=== PATIENT | female | born 1930 | race Caucasian/White ===

== ENCOUNTER 2017-02-02 15:18 | Emergency (ER) | payer MEDICARE, OTHER ==
[~2017-02-02] VITALS: Ht 160 cm; Wt 67.6 kg
--- NOTE | 2017-02-02 15:44 | RAD ---
EXAM: CT head without contrast. HISTORY: Right-sided weakness and altered mental status. TECHNIQUE: Computed tomography of the head was performed without intravenous contrast. COMPARISON: None. FINDINGS: There is no intracranial hemorrhage. There are multiple large regions of encephalomalacia consistent with chronic infarctions. These involve the right frontal lobe, right parietal lobe, left occipital lobe and left frontal lobe. Superimposed acute or subacute infarctions in these regions cannot be excluded. Background chronic small vessel ischemic white matter change is severe. Prominence of the lateral ventricles and hemispheric sulci indicate moderate atrophy. The visualized paranasal sinuses appear clear. There are changes of bilateral cataract surgery. The temporal bones are unremarkable. The calvarium reveals no suspicious lesions. IMPRESSION: 1. 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 Superimposed acute or subacute infarcts in these regions cannot be excluded. MRI could further differentiate if there is persistent concern. 2. Moderate atrophy. *One or more of the following individualized dose reduction techniques were utilized for this examination: 1. Automated exposure control. 2. Adjustment of the mA and/or kV according to patient size. 3. Use of iterative reconstruction technique.
--- NOTE | 2017-02-02 15:46 | EKG ---
[facility] [address] [place] [address] Test Date: 2017-02-02 Test Time: 15:42:13 Pat Name: VALERY RODRIGUEZ Department: Room: Gender: F [employer] Phone Rep[employer]r: : [id number] Requested By: MICHELL MEDEIROS Order Number: [id number] Reading MD: Measurements Intervals [place] Rate: 78 P: -56 AL: 162 QRS: 9 QRSD: 136 T: 11 QT: 358 QTc: 411 Interpretive Statements SINUS RHYTHM ATRIAL PREMATURE COMPLEX(ES) RIGHT BUNDLE BRANCH BLOCK RVH WITH REPOLARIZATION ABNORMALITY RI6.01 Unconfirmed report No previous ECG available for comparison
[2017-02-02 16:37] LABS: BASO % 1 % (0-3); EOS % 2 % (0-3); HEMATOCRIT 41.8 % (36.0-47.0); HEMOGLOBIN 13.4 g/dL (12.0-15.5); LYMPH # 1.9 x10^3/uL (1.0-4.8); LYMPH % 25 % (24-48); MEAN CORPUSCULAR HEMOGLOBIN 27 pg (25-35); MEAN CORPUSCULAR HGB CONC 32 g/dL (31-37); MEAN CORPUSCULAR VOLUME 86 fL (79-100); MONO % 10 % (0-9); NEUT % 63 % (31-73); PLATELET COUNT 278 x10^3/uL (140-400); RED BLOOD COUNT 4.88 x10^6/uL (3.50-5.40); RED CELL DISTRIBUTION WIDTH 14.6 % (11.5-14.5); WHITE BLOOD COUNT 7.5 x10^3/uL (4.0-11.0)
[2017-02-02] MEDS ORDERED: ONDANSETRON PF 4 MG/2 ML VIAL. ONE (16:47)
[2017-02-02 16:48] VITALS: BP 118/55
[2017-02-02 16:51] LABS: CALCIUM 9.7 mg/dL (8.5-10.1); GFR 52.4; POTASSIUM 4.3 mmol/L (3.5-5.1)
--- NOTE | 2017-02-02 17:33 | PHYS DOC ---
Past Medical History Past Medical History: Cancer, Constipation, Dementia, Hypertension, Hypothyroid Additional Past Medical Histor: SEASONAL ALLERGIES, INSOMNIA, CVA, LUNG CA Past Surgical History: Hysterectomy, Knee Replacement Additional Past Surgical Histo: R KNEE REPLACEMENT, BACK, L LOWER LUNG REMOVED Alcohol Use: None Drug Use: None Adult General Chief Complaint Chief Complaint: NEURO SYMPTOMS/DEFICITS HPI HPI This is an 86-year-old female presents from assisted living facility with concern for acute stroke after having significant right-sided weakness that was noted approximately around 11 AM per family at bedside. They state she has history of significant dementia and prior strokes but normally does not have right-sided weakness. They state her mental status has worsened today and that she is not verbalizing with normal as well. Upon my initial examination the patient is alert but not oriented and is not able to answer any questions at this time. She appears confused and is not using her right upper or right lower extremity. She has a confirmed DNR directive. Review of Systems Review of Systems A 10 point ROS is unable to be obtained secondary to her underlying mental status. Current Medications Current Medications Current Medications Medications (Trade) Dose Ordered Sig/Nicolasa Start Time Stop Time Status Last Admin Dose Admin Ondansetron HCl (Zofran) 4 mg STK-MED ONCE 02/02/17 16:47 02/02/17 16:48 DC Allergies Allergies Allergies Coded Allergies Type Severity Reaction Last Updated Verified No Known Drug Allergies 02/02/17 No Physical Exam Physical Exam Constitutional: Well developed, well nourished, no acute distress[] HENT: Normocephalic, atraumatic, bilateral external ears normal, oropharynx moist, no oral exudates, nose normal. [] Eyes: PERRLA, conjunctiva normal, no discharge. [] Neck: Normal range of motion, no tenderness, supple, no stridor. [] Cardiovascular:Heart rate regular rhythm, no murmur [] Lungs & Thorax: Bilateral breath sounds clear to auscultation [] Abdomen: Bowel sounds normal, soft, no tenderness, no masses, no pulsatile masses. [] Skin: Warm, dry, no erythema, no rash. [] Back: No tenderness, no CVA tenderness. [] Extremities: No tenderness, no cyanosis, no clubbing, ROM intact, no edema. [] Neurologic: Significant right upper and lower extremity weakness with drift noted. [] Current Patient Data Vital Signs Vital Signs Date Time Temp Pulse Resp B/P Pulse Ox O2 Delivery O2 Flow Rate FiO2 02/02/17 16:48 86 118/55 95 Room Air 02/02/17 15:30 98.2 18 98.2 Lab Values Laboratory Tests Test 02/02/17 16:05 White Blood Count 7.5x10^3/uL (4.0-11.0) Red Blood Count 4.88x10^6/uL (3.50-5.40) Hemoglobin 13.4g/dL (12.0-15.5) Hematocrit 41.8% (36.0-47.0) Mean Corpuscular Volume 86fL (79-100) Mean Corpuscular Hemoglobin 27pg (25-35) Mean Corpuscular Hemoglobin Concent 32g/dL (31-37) Red Cell Distribution Width 14.6% (11.5-14.5) H Platelet Count 278x10^3/uL (140-400) Neutrophils (%) (Auto) 63% (31-73) Lymphocytes (%) (Auto) 25% (24-48) Monocytes (%) (Auto) 10% (0-9) H Eosinophils (%) (Auto) 2% (0-3) Basophils (%) (Auto) 1% (0-3) Neutrophils # (Auto) 4.7x10^3uL (1.8-7.7) Lymphocytes # (Auto) 1.9x10^3/uL (1.0-4.8) Monocytes # (Auto) 0.7x10^3/uL (0.0-1.1) Eosinophils # (Auto) 0.1x10^3/uL (0.0-0.7) Basophils # (Auto) 0.0x10^3/uL (0.0-0.2) Sodium Level 143mmol/L (136-145) Potassium Level 4.3mmol/L (3.5-5.1) Chloride Level 103mmol/L (98-107) Carbon Dioxide Level 29mmol/L (21-32) Anion Gap 11 (6-14) Blood Urea Nitrogen 21mg/dL (7-20) H Creatinine 1.0mg/dL (0.6-1.0) Estimated GFR (Cockcroft-Gault) 52.4 Glucose Level 107mg/dL (70-99) H Calcium Level 9.7mg/dL (8.5-10.1) Troponin I Quantitative < 0.017ng/mL (0.000-0.055) Laboratory Tests 02/02/17 16:05 Laboratory Tests 02/02/17 16:05 EKG EKG [] Radiology/Procedures Radiology/Procedures EXAM: CT head without contrast. HISTORY: Right-sided weakness and altered mental status. TECHNIQUE: Computed tomography of the head was performed without intravenous contrast. COMPARISON: None. FINDINGS: There is no intracranial hemorrhage. There are multiple large regions of encephalomalacia consistent with chronic infarctions. These involve the right frontal lobe, right parietal lobe, left occipital lobe and left frontal lobe. Superimposed acute or subacute infarctions in these regions cannot be excluded. Background chronic small vessel ischemic white matter change is severe. Prominence of the lateral ventricles and hemispheric sulci indicate moderate atrophy. The visualized paranasal sinuses appear clear. There are changes of bilateral cataract surgery. The temporal bones are unremarkable. The calvarium reveals no suspicious lesions. Course & Med Decision Making Course & Med Decision Making Pertinent Labs and Imaging studies reviewed. (See chart for details) This 86 yo female with significant right sided weakness and altered mental status is likely 4-5 hours into an acute stroke. She was made a stroke alert immediately upon arrival. Her initial Head CT is unremarkable and shows no acute symptoms but does show rather large areas of previous infarct which with in combination of her age and delayed presentation makes her high risk for TPA administration. I discussed the case with the neurologist, Dr. Peter, who agrees with withholding TPA at this time and to facilitate [facility] transfer if the family wishes for this. I discussed the risks/benefits with the family and they agree that TPA is high risk for bleed in this scenario and they are requesting the patient be transferred to [facility] where she has received all her care previously. The transfer center was notified and I spoke with the accepting neurology physician at [facility] who agreed to accept the patient to a medical neurology floor for further evaluation. While transfer was being set up, the patient began to have a seizure episode and a dose of ativan was given. I confirmed at bedside that the patient is a DNR status and she has a directive symbolizing this at bedside. I once again asked the daughter at beside who is the POA about the patient's wishes and she expressed that she does not wish to be intubated at this time. Due to the chance for endovascular intervention, the patient was tranferred emergently to [facility] and a bed was able to made available. Her laboratory workup was otherwise negative. Dragon Disclaimer Dragon Disclaimer This electronic medical record was generated, in whole or in part, using a voice recognition dictation system. Departure Departure Impression: Primary Impression: Right sided weakness Additional Impression: Altered mental status Disposition: 02 TRANSFER [facility] Admitting Physician: Other Condition: CRITICAL Referrals: UNKNOWN PCP NAME (PCP) Problem Qualifiers MICHELL MEDEIROS DO Feb 02, 2017 17:33
== END 2017-02-02 16:55 | disposition short-term general hospital (02) ==
LOC: ER 15:18
DX: R53.1 Weakness (principal); R41.82 Altered mental status, unspecified; F03.90 Unspecified dementia, unspecified severity, without behavioral disturbance, psychotic disturbance, mood disturbance, and anxiety; I10 Essential (primary) hypertension; E03.9 Hypothyroidism, unspecified; G47.00 Insomnia, unspecified; Z66 Do not resuscitate; Z86.73 Personal history of transient ischemic attack (TIA), and cerebral infarction without residual deficits
CPT/HCPCS: 36415; 70450; 80048; 84484; 85027; 93005; 99285-25